=== PATIENT | female | born 1960 | race Caucasian/White ===

== ENCOUNTER 2021-12-12 00:08 | Day surgery (SDC) | payer OTHER, SELFPAY ==
[2021-11-24 12:45] VITALS: BMI 36.1
--- NOTE | 2021-12-11 15:52 | PM.HPGS ---
History of Present Illness History of Present Illness Consent: Risks, benefits, and alternatives have been discussed and questions answered. Patient agrees to proceed with procedure. Chief complaint: neoplasm screening Narrative: Saranya Finch is a 61 year old female Referred for colon cancer screening. Review of Systems Review of Systems: All systems reviewed & are unremarkable except as noted in HPI and below PMFSH Past Medical History Medical History Hypertension Kidney stones Obesity Surgical History Surgical History History of dilation and curettage (07/27/10) hscope d&c--endocervical polpectomy--benign History of root canal procedure (05/18/15) Family History Family History Other Advanced dementia Social History Social History Smoking status: Former smoker Alcohol intake: current Alcohol use details: socially Substance use: never Substance use type: does not use Living arrangements: with family Additional occupation/education comments: banker Gender identity (if verbalized by the patient): Female Spiritual care concerns: No Meds Home Medications and Allergies Home Medications Medication Instructions Recorded Confirmed Type lisinopril 10 mg tablet 10 mg PO DAILY 08/22/21 12/12/21 History tolterodine 4 mg capsule,extended 4 mg PO DAILY #90 caps 08/22/21 12/12/21 Rx release 24 hr (Detrol LA) multivit with minerals-iron 18 1 tablet PO DAILY 11/24/21 12/12/21 History mg-folic ac 400 mcg-vit K 25 mcg tablet (Adults Multivitamin) Allergies Allergy/AdvReac Type Severity Reaction Status Date / Time No Known Allergies Allergy Mild Verified 12/12/21 10:29 Exam Const: General: alert Orientation/consciousness: patient oriented x3 Resp: Auscultation: clear to auscultation bilaterally Cardio: Rhythm: regular rhythm GI: GI Palp: Yes Soft to palpation and No Tenderness to palpation present (GI) Neuro: General: patient oriented x3 Assessment and Plan Assessment and plan (1) Colon cancer screening: Code(s): Z12.11 - Encounter for screening for malignant neoplasm of colon Status: Acute Assessment and Plan: Colonoscopy with possible biopsy or polypectomy or cautery or injection of substances.
[2021-12-12 10:30] VITALS: BP 153/89; PULSE 84; RESP 16; TEMP 36.2; O2SAT 99
[2021-12-12] MEDS: LACTATED RINGERS 1,000 ML 150 ML IV CONT (10:41)
--- NOTE | 2021-12-12 10:43 | P.PNAN_ITS ---
Anes - Initial Pre Proc Eval Procedure: Operation Date: 12/12/21 11:30 Proposed Procedures p Screening Colonoscopy - Jamarcus Carter MD Date/Time: 12/12/21 10:43 Surgeon: Jamarcus Carter MD Pre Op Diagnosis: neoplasm screening Patient Data Age: 61 Gender: F Height: 1.52 m Weight: 81 kg Last Vital Signs Temp 36.2 C L 12/12/21 10:30 Pulse 84 12/12/21 10:30 Resp 16 12/12/21 10:30 BP 153/89 H 12/12/21 10:30 Pulse Ox 99 12/12/21 10:30 O2 Del Method Room Air 12/12/21 10:30 Allergies Allergy/AdvReac Type Severity Reaction Status Date / Time No Known Allergies Allergy Mild Verified 12/12/21 10:29 Home Medications Medication Instructions Recorded Confirmed Type lisinopril 10 mg tablet 10 mg PO DAILY 08/22/21 12/12/21 History tolterodine 4 mg capsule,extended 4 mg PO DAILY #90 caps 08/22/21 12/12/21 Rx release 24 hr (Detrol LA) multivit with minerals-iron 18 1 tablet PO DAILY 11/24/21 12/12/21 History mg-folic ac 400 mcg-vit K 25 mcg tablet (Adults Multivitamin) Patient hx anesthesia problems: none Family hx anesthesia problems: none Results Review: All pre-operative results and documents have been reviewed as part of the pre- operative evaluation. [facility] Past Medical History Medical History (Updated 12/12/21 @ 10:44 by Mike Barrera MD) Hypertension Kidney stones Obesity Surgical History Surgical History History of dilation and curettage (07/27/10) hscope d&c--endocervical polpectomy--benign History of root canal procedure (05/18/15) Family History Family History Other Advanced dementia Social History Social History Smoking status: Former smoker Alcohol intake: current Alcohol use details: socially Substance use: never Substance use type: does not use Living arrangements: with family Additional occupation/education comments: banker Gender identity (if verbalized by the patient): Female Spiritual care concerns: No Anes - Eval Final PreProcedure Day of Procedure 12/12/21 10:43 Patient weight: obese Heart: regular rate and rhythm Lungs: clear to auscultation Airway: Mallampati scale class II Neurological: alert and oriented ASA classification: II Emergent: no Anesthesia type and monitoring: general GIVS and standard monitoring Results Review: All pre-operative results and documents have been reviewed as part of the pre- operative evaluation. Informed Consent: The patient's anesthetic plan and its attendant risks and benefits were discussed with the patient/family/POA. Questions were solicited and answers provided to the satisfaction of the patient/family/POA.
[2021-12-12 11:36] VITALS: BP 119/75; PULSE 80; RESP 18; O2SAT 97
[2021-12-12 11:46] VITALS: BP 110/72; PULSE 77; RESP 20; O2SAT 99
[2021-12-12 11:56] VITALS: BP 122/85; PULSE 76; RESP 18; O2SAT 100
== END 2021-12-12 12:02 | disposition home or self-care (01) ==
PROVIDERS: PCP Nurse Practitioner Family; Visit Provider Internal Medicine Gastroenterology
PROC: 0DJD8ZZ Inspection of Lower Intestinal Tract, Via Natural or Artificial Opening Endoscopic (ICD-10-PCS; CPT 45378; principal; 2021-12-12 11:30)
DX: Z12.11 Encounter for screening for malignant neoplasm of colon (principal); I10 Essential (primary) hypertension; Z87.891 Personal history of nicotine dependence; E66.9 Obesity, unspecified; Z68.34 Body mass index [BMI] 34.0-34.9, adult
CPT/HCPCS: 45378; J2704; J7120

== ENCOUNTER 2024-10-31 14:38 | Outpatient (CLI) | payer OTHER, SELFPAY ==
--- NOTE | ~2024-10-31 | MM_ITS ---
EXAMINATION: MM screening miriam BI w kiran HISTORY: Screening TECHNIQUE: Craniocaudal and mediolateral oblique 3-D tomosynthesis images were obtained and synthetic 2-D images were generated. CAD analysis was submitted and interpreted. COMPARISON: No prior mammogram is available for comparison at this institution. BREAST PARENCHYMAL COMPOSITION: Not dense: There are scattered areas of fibroglandular density. FINDINGS: There are scattered nodules which are partially obscured by fibroglandular tissue throughou t the left breast. There is no mammographic evidence for malignancy in the right breast. IMPRESSION: 1. Scattered left breast nodules. 2. Recommend comparison outside mammograms to assess stability. BI-RADS Category 0: Incomplete: Needs additional imaging evaluation. Reviewed, dictated and finalized at location A.
--- OUTSIDE RECORDS SUMMARY | 2024-10-31 14:41 | XMS_ITS | Clinical Summary ---
Author Organization [address] Address [address] [place] [address] [place] [id number] Care Team Providers Care Doggy Daycare Activities Director Name Role Phone No, Physician Primary Care Provider [phone] Allergies No known active allergies Medications calcium carbonate-vitami n D3 (CALTRATE 600 + D) 1500 mg (600 mg elemental) -400 units per tabletIndication s:Prevention of Vitamin D Deficiency Take 1 tablet by mouth 2 (two) times a day 4 Active lisinopriL (PRINIVIL,ZESTRI L) 10 mg tabletIndication s:hypertension Take 1 tablet (10 mg total) by mouth emergency planner before breakfast 4 Active phentermine 30 mg capsuleIndicatio ns:Wt Loss Mgmt, Pt with BMI 27-29 & Wt-Related Comorbidity Take 1 capsule (30 mg total) by mouth every morning 4 Active multivitamin tabletIndication s:Vitamin Deficiency Prevention Take 1 tablet by mouth emergency planner before breakfast Active polycarbophil (FIBERCON) 625 mg tabletIndication s:constipation Take 1 tablet (625 mg total) by mouth emergency planner before breakfast Active dorzolamide-cynthia loL (COSOPT) 22.3-6.8 mg/mL ophthalmic solution Administer 1 drop into both eyes 2 (two) times a day 10 mL 5 Active tolterodine LA (DETROL LA) 4 mg 24 hr capsule Take 1 capsule (4 mg total) by mouth daily Active latanoprost (XALATAN) 0.005 % ophthalmic solution Administer 1 drop into the left eye nightly 2.5 mL 11 5 Active Active Problems Problem Noted Date Diagnosed Date Residual stage angle-closure glaucoma, left 09/17 Assessment & Plan (10/08/2024 8:01 PM CDT): OCT and Barreto visual field (HVF) stable Intraocular pressure (IOP) elevated today on Cosopt ? Steroid response with hx of GSL and open angle Status post (s/p) STK 06/10 Discussed with pt- ? Excision Add latanoprost left eye (OS) q day F/U 1 month- repeat gonio Epiretinal membrane (ERM) of both eyes Assessment & Plan (04/23/2024 10:03 AM CUSTOMER COMPLAINT SERVICE SUPERVISOR): Mild , not visually significant both eyes (OU). Cystoid macular edema of left eye 04/23/2024 Assessment & Plan (10/08/2024 8:00 PM CDT): Resolved Noted mild VMT with ERM Assessment & Plan (04/23/2024 10:03 AM CUSTOMER COMPLAINT SERVICE SUPERVISOR): Mildly improved on Durezol and Acular but persistent . Discussed R/B/A of STK and patient wishes to proceed. Post-operative state 12/14/2023 Assessment & Plan (03/26/2024 3:16 PM CUSTOMER COMPLAINT SERVICE SUPERVISOR): POM3 CEIOL and ECP - Left OCT mac with significant CME, stable from prior IOP trending higher. Add Cosopt left eye (OS) bid Switch PF to Durezol QID Continue ketorolac QID Refer to Retina Right eye LPI patent (s/p touch up in 02/2024) CEIOL OD once CME OS improved Assessment & Plan (02/27/2024 4:44 PM CUSTOMER COMPLAINT SERVICE SUPERVISOR): POM2 Extraction Cataract - Phacoemulsification And Lens Implant - Left, and Endoscopic Laser Cyclophotocoagulation - Left Inflammation resolved, vision improving with cystoid macular edema (CME) Cont PF qid/Ketorolac qid Intraocular pressure (IOP) acceptable off meds Right eye (OD)- laser peripheral iridotomy (LPI) now patent Defers cataract extraction (CE) right eye (OD) until next year F/U 4 wks with repeat OCT Assessment & Plan (02/06/2024 9:21 PM CUSTOMER COMPLAINT SERVICE SUPERVISOR): POW7 Extraction Cataract - Phacoemulsification And Lens Implant - Left, and Endoscopic Laser Cyclophotocoagulation - Left Inflammation resolved, vision worsened with cystoid macular edema (CME) Begin PF qid/Ketorolac qid Intraocular pressure (IOP) excellent off meds Right eye (OD)- laser peripheral iridotomy (LPI) now patent Defers cataract extraction (CE) left eye (OS) until next year F/U 3 wks with repeat OCT Assessment & Plan (01/09/2024 4:47 PM CDT): POM1 Extraction Cataract - Phacoemulsification And Lens Implant - Left, and Endoscopic Laser Cyclophotocoagulation - Left Inflammation resolved, vision improved Tapering off PF Intraocular pressure (IOP) excellent off meds Right eye (OD)- laser peripheral iridotomy (LPI) not patent Recommend cataract extraction (CE)/intraocular lens (IOL) Defers until next year, recommend touchup laser peripheral iridotomy (LPI) Assessment & Plan (12/19/2023 1:17 PM CDT): POW1 Extraction Cataract - Phacoemulsification And Lens Implant - Left, and Endoscopic Laser Cyclophotocoagulation - Left Still with injection and 1+ cell. Will extend taper slightly Postoperative instructions were given. The patient is to use: Taper PF 4-3-2-1 D/C Moxi Continue cosopt BID OD Signs, symptoms of retinal detachment, tear, hole, and endophthalmitis and hypotony were reviewed and the patient is to call immediately for concerns. They can resume normal activity. We discussed that things should improve until they stabilize. Should there be any worsening of pain, vision, or redness the patient is to call. RTC for POM1 refraction and possible pre-op OD Assessment & Plan (12/14/2023 11:16 AM CDT): POD1 Extraction Cataract - Phacoemulsification And Lens Implant - Left, and Endoscopic Laser Cyclophotocoagulation - Left Intraocular pressure (IOP) 15 with 4+ mixed (mostly pigmented) cell Postoperative instructions were given. The patient is to use: ofloxacin QID X 1 week Prednisolone Acetate 1% QID Hold glaucoma drops left eye (OS) Continue Cosopt every day (QD) OD Patient is to wear the shield at bedtime X 1 week. Signs, symptoms of retinal detachment, tear, hole, and endophthalmitis were reviewed and the patient is to call immediately for concerns. We discussed that things should improve until they stabilize. Should there be any worsening of pain, vision, or redness the patient is to call. Followup 1 week or sooner for concerns. Age-related nuclear cataract of right eye 2023 Assessment & Plan (03/26/2024 2:17 PM CUSTOMER COMPLAINT SERVICE SUPERVISOR): Appositional closure Recommend CEIOL Assessment & Plan (01/09/2024 4:48 PM CDT): Recommend cataract extraction (CE)/intraocular lens (IOL) with appositional closure Defers until next year Acute angle-closure glaucoma, left 11/21/2023 Assessment & Plan (11/28/2023 5:47 PM CDT): Hx of acute angle closure glaucoma (AACG) status post (s/p) laser peripheral iridotomy (LPI) with touch up- anterior chamber (AC) deeper, angle remains occludable/PAS Intraocular pressure (IOP) now 48 on 3 agents Exam with glaukomflecken, shallow anterior chamber (AC), and pallor of nerve - Barreto visual field (HVF) with mod inf arcuate; Cont Latanoprost, Cosopt, DC PF Add DMX 500 mg bid- discussed side effects Leaving 11/29-20 F/U after travel and plan for cataract extraction (CE)/intraocular lens (IOL)/GSL, possible diode merchandising internship left eye (OS) 12/17 Assessment & Plan (11/21/2023 9:10 PM CDT): Referred by Dr. Maria with hx of acute angle closure attack 10/29/23 Status post (s/p) laser peripheral iridotomy (LPI) left eye (OS) On Phentermine (sympathomimetic) currently and was on tolteradine (muscarinic) at time of the attack- intraocular pressure (IOP) 40s, redness and pain x 2 days Initially thought she had an eye infection Intraocular pressure (IOP) now 18 on 4 agents Laser peripheral iridotomy (LPI) partially patent. Angle remains with appositional closure, no obvious PAS. Exam with glaukomflecken, shallow anterior chamber (AC), and pallor of nerve - Barreto visual field (HVF) with mod inf arcuate; Recommend touch up laser peripheral iridotomy (LPI)- performed in office without complication Simplify meds: Latanoprost, Cosopt, PF for postop F/U 1 wk- plan laser peripheral iridotomy (LPI) right eye (OD), IOLM Recommend cataract extraction (CE)/intraocular lens (IOL) for definitive therapy Primary angle closure suspect, right 11/21/2023 Assessment & Plan (10/08/2024 8:00 PM CDT): Intraocular pressure (IOP) acceptable on Cosopt Nl RNFL, full Barreto visual field (HVF) Defer cataract extraction (CE) until left eye (OS) stable Assessment & Plan (02/06/2024 9:20 PM CUSTOMER COMPLAINT SERVICE SUPERVISOR): Touch up YAG PI today Assessment & Plan (11/28/2023 5:48 PM CDT): Occludable angles, normal intraocular pressure (IOP) , full visual field (VF) and Normal RNFL No symptoms Incomplete laser peripheral iridotomy (LPI) today Defer additional laser until postop left eye (OS) Assessment & Plan (11/21/2023 9:09 PM CDT): Occludable angles, normal intraocular pressure (IOP) , full visual field (VF) and Normal RNFL No symptoms Plan laser peripheral iridotomy (LPI) right eye (OD) next week Encounters Date Type Department Care Team Description 10/08/2024 1:45 PM CDT Office Visit [facility] Ophthalmology [facility] [place] [phone] Miranda Laureano MD Residual stage angle-closure glaucoma, left (Primary Dx); Primary angle closure suspect, right; Cystoid macular edema of left eye 10/08/2024 1:20 PM CDT Imaging Exam [facility] Ophthalmology [address] [place] [phone] Ocular hypertension of left eye 10/08/2024 1:10 PM CDT Imaging Exam [facility] Ophthalmology [address] [place] [phone] Ocular hypertension of left eye 09/10/2024 2:15 PM CDT Office Visit [facility] Ophthalmology [address] [place] [phone] Kendal Aviles MD PhD Cystoid macular edema of left eye (Primary Dx) from Last 3 Months Surgical History Surgery Date Site/Laterality Comments COLONOSCOPY Medical History Medical History Date Comments HTN (hypertension) Glaucoma CME (cystoid macular edema), left Social History Tobacco Use Types Packs/Day Years Used Date Smoking Tobacco: Never Smokeless Tobacco: Never Tobacco Cessation:Counseling Given: Not Answered AUDIT-C Answer Date Recorded Q1: How often do you have a drink containing alc ohol? Monthly or less 12/06/2023 Q2: How many drinks containi ng alcohol do you have on a typical day when you are drinking? 1 or 2 12/06/2023 Q3: How often do you have si x or more drinks on one occasion? Never 12/06/2023 Personal Safety Answer Date Recorded Have you ever been in or are you currently in a harmful physical or emotional relationship or is someone making you feel afraid or unsafe? Denies 12/13/2023 Comments Unknown Sex and Gender Information Value Date Recorded Sex Assigned at Not on file Legal Sex Female 5:54 PM CUSTOMER COMPLAINT SERVICE SUPERVISOR Gender Identity Not on file Sexual Orientation Not on file Obstetrics History Last Filed Vital Signs Vital Sign Reading Time Taken Comments Blood Pressure 115/78 12/13/2023 8:40 AM CDT Pulse 68 12/13/2023 8:40 AM CDT Temperature 36.4 C (97.5 F) 12/13/2023 8:32 AM CDT Respiratory Rate 14 12/13/2023 8:40 AM CDT Oxygen Saturation 99% 12/13/2023 8:40 AM CDT Inhaled Oxygen Concentration - - Weight 78 kg (172 lb) 12/06/2023 10:00 AM CDT Height 152.4 cm (5') 12/06/2023 10:00 AM CDT Body Mass Index 33.59 12/06/2023 10:00 AM CDT Plan of Treatment Health Maintenance Due Date Last Done Comments Breast Cancer Screening-Mammogram 1960 Cervical Cancer Screening 1960 Colon Cancer Screening-Colonoscopy 1960 Depression Screening 1960 Hepatitis C Screening 1960 Hepatitis B Screening 02/25/1978 Regular Well Visit/Exam 18-64 02/25/1978 Zoster Vaccine (1 of 2) 02/25/2010 Covid-19 Vaccine (3 - 2023-2 5 season) 2023 10/11/2020, 09/07/2020 Influenza Vaccine (#1) 2024 DTaP/Tdap/Td Vaccine (2 - Td or Tdap) 09/12/2027 09/11/2017 Pneumococcal vaccine <65 Aged Out No longer eligible based on patient's age to complete this topic Medical Devices Implanted Type Area Aircraft Seat Upholsterer Device Identifier Shelf Expiration Date Model / Serial / Lot Obeo Lens Iol Tecnis Smplcty 1-Pc Clr [employer] 21.5 Diopter [id number] - [id number] - [id number] Implanted:Qty: 1 on 12/13/2023 by Miranda Laureano MD at [facility] Lens Left: Eye [employer] [id number] 08/21/2025 [id number] / [id number] / Procedures Procedure Name Priority Date/Time Associated Diagnosis Comments BARRETO VISUAL FIELD - OU - BOTH EYES Routine 10/08/2024 1:00 PM CDT Ocular hypertension of left eye OCT, OPTIC NERVE - OU - BOTH EYES Routine 10/08/2024 1:00 PM CDT Ocular hypertension of left eye OCT, RETINA - OU - BOTH EYES Routine 09/10/2024 1:44 PM CDT Cystoid macular edema of left eye from Last 3 Months Results * Barreto Visual Field - OU - Both Eyes (10/08/2024 1:00 PM CDT) Mean Deviation OS -3.63 CONTINUUM Mean Deviation OD 0.57 CONTINUUM Anatomical Region Laterality Modality Head Other Narrative 10/08/2024 7:57 PM CDT Right Eye Fixation was good. Cooperation was good. Reliability was good. Progression has been stable. Foveal threshold was normal. Findings include normal observations. Mean Deviation was 0.57. Left Eye Fixation was good. Cooperation was good. Reliability was good. Progression has been stable. Foveal threshold was normal. Findings include inferior arcuate defect. Mean Deviation was -3.63. Miranda Laureano MD OPH VISUAL FIELD Final Result * OCT, Optic Nerve - OU - Both Eyes (10/08/2024 1:00 PM CDT) RNFL OS 94 micrometers CONTINUUM RNFL OD 114 micrometers CONTINUUM Anatomical Region Laterality Modality Head Other Narrative 10/08/2024 7:55 PM CDT Right Eye Reliability was good. Temporal progression was stable. Temporal thickness was normal. Superior progression was stable. Superior thickness was normal. Nasal progression was stable. Nasal thickness was normal. Inferior progression was stable. Inferior thickness was normal. Average RNFL thickness 114 micrometers. Left Eye Reliability was good. Temporal progression was stable. Temporal thickness was normal. Superior progression was stable. Superior thickness was normal. Nasal progression was stable. Nasal thickness was normal. Inferior progression was stable. Inferior thickness was normal. Average RNFL thickness 94 micrometers. Notes Noted asymmetry Miranda Laureano MD OPHTH TOMOGRAPHY Final R esult * OCT, Retina - OU - Both Eyes (09/10/2024 1:44 PM CDT) Anatomical Region Laterality Modality Head Optical Coherenc e Tomography Narrative 09/10/2024 1:44 PM CDT Right eye (OD): epiretinal membrane (ERM) with mild focal VMT, no cystoid macular edema (CME) Left eye (OS): resolved cystoid macular edema (CME) with resolved rare cysts Kendal Aviles MD PhD OPHTH TOMOGRAPHY Fin al Result from Last 3 Months Insurance [employer] OPEN ACCESS [facility] [employer] OPEN ACCESS Care Teams Doggy Daycare Activities Director Relationship Specialty Start Date End Date No, Physician PCP - General 11/15/23
== END 2024-10-31 14:39 | disposition home or self-care (01) ==
LOC: CHSIMG 14:39
PROVIDERS: PCP Nurse Practitioner Family; Visit Provider Obstetrics & Gynecology
DX: Z12.31 Encounter for screening mammogram for malignant neoplasm of breast (principal); R92.8 Other abnormal and inconclusive findings on diagnostic imaging of breast
CPT/HCPCS: 77063; 77067

== ENCOUNTER 2024-11-24 09:17 | Outpatient (CLI) | payer OTHER, SELFPAY ==
--- NOTE | ~2024-11-24 | MMUS_ITS ---
EXAMINATION: MM diagnostic miriam LT w kiran, US breast LT limited INDICATION: 64-year old female; BI-RADS 0, evaluate left breast masses. COMPARISON: 10/31/2024 TECHNIQUE: Digital breast tomosynthesis True lateral and spot compression CC and MLO views of the LEFT breast were obtained with computer-aided detection to assist in interpretation of the study. FINDINGS: There are scattered areas of fibroglandular density. A circumscribed mass persists on the spot compression views in the retroareolar, middle third. Additional circumscribed mass persists in the inferior central 6:00 location at anterior third. A circumscribed mass persists on spot compression views in the lateral central at posterior third. Ultrasound was performed for further evaluation. LEFT BREAST ULTRASOUND FINDINGS: Targeted evaluation of the areas of concern was completed. There is a 0.8 x 0.6 x 0.4 cm anechoic mass, subareolar location in the LEFT breast that correlates to the area of Mammographic finding. This finding represents a cyst. At 6:00, 1 cm from the nipple there is a 0.3 cm anechoic mass which correlates to a mammographic finding. This finding most likely represent a cyst. There is no sonographic correlate to the mammographic circumscribed mass seen at 3:00 location. This finding is most likely probably benign. IMPRESSION: 1. Probably benign circumscribed mass outer central left breast. 2. Benign LEFT breast cysts in the subareolar and at 6:00 location that correlates to mammographic finding. No further investigation necessary. RECOMMENDATION: Short-term follow-up diagnostic left mammogram in 6 months. BI-RADS 3, PROBABLY BENIGN Reviewed, dictated and finalized at location B. IMPRESSION: 1. Probably benign circumscribed mass outer central left breast. 2. Benign LEFT breast cysts in the subareolar and at 6:00 location that correl ates to mammographic finding. No further investigation necessary. RECOMMENDATION: Short-term follow-up diagnostic left mammogram in 6 months. BI-RADS 3, PROBABLY BENIGN
--- OUTSIDE RECORDS SUMMARY | 2024-11-24 09:35 | XMS_ITS | Clinical Summary ---
Author Organization [address] Address [address] [place] [address] SOLITARIO Mckenna [phone] Care Team Providers Care Parking Lot Signaler Name Role Phone No, Physician Primary Care Provider [phone] Allergies No known active allergies Medications calcium carbonate-vitami n D3 (CALTRATE 600 + D) 1500 mg (600 mg elemental) -400 units per tabletIndication s:Prevention of Vitamin D Deficiency Take 1 tablet by mouth 2 (two) times a day 4 Active lisinopriL (PRINIVIL,ZESTRI L) 10 mg tabletIndication s:hypertension Take 1 tablet (10 mg total) by mouth diving coach before breakfast 4 Active phentermine 30 mg capsuleIndicatio ns:Wt Loss Mgmt, Pt with BMI 27-29 & Wt-Related Comorbidity Take 1 capsule (30 mg total) by mouth every morning 4 Active multivitamin tabletIndication s:Vitamin Deficiency Prevention Take 1 tablet by mouth diving coach before breakfast Active polycarbophil (FIBERCON) 625 mg tabletIndication s:constipation Take 1 tablet (625 mg total) by mouth diving coach before breakfast Active dorzolamide-cynthia loL (COSOPT) 22.3-6.8 mg/mL ophthalmic solution Administer 1 drop into both eyes 2 (two) times a day 10 mL 5 Active tolterodine LA (DETROL LA) 4 mg 24 hr capsule Take 1 capsule (4 mg total) by mouth daily Active latanoprost (XALATAN) 0.005 % ophthalmic solution Administer 1 drop into the left eye nightly 2.5 mL 11 Active atorvastatin (LIPITOR) 10 mg tablet Take 1 tablet every day by oral route at bedtime for 90 days. Active Active Problems Problem Noted Date Diagnosed Date Residual stage angle-closure glaucoma, left 09/17 Assessment & Plan (11/12/2024 9:47 PM CDT): Intraocular pressure (IOP) elevated today on Cosopt and latanoprost Steroid response with hx of GSL and open angle Status post (s/p) STK 06/10 Discussed with pt- ? Excision- very small F/U 6 wks- repeat gonio ? SLT Assessment & Plan (10/08/2024 8:01 PM CDT): [...] eyes Assessment & Plan (04/23/2024 10:03 AM REPRODUCTION ARTIST): Mild , not visually significant both eyes (OU). Cystoid macular edema of left eye 04/23/2024 Assessment & Plan (11/12/2024 9:48 PM CDT): Resolved Noted mild VMT with epiretinal membrane (ERM) F/U with Dr. Aviles 5 wks Assessment & Plan (10/08/2024 8:00 PM CDT): Resolved Noted mild VMT with ERM Assessment & Plan (04/23/2024 10:03 AM REPRODUCTION ARTIST): Mildly improved on Durezol and Acular but persistent . Discussed R/B/A of STK and patient wishes to proceed. Post-operative state 12/14/2023 Assessment & Plan (03/26/2024 3:16 PM REPRODUCTION ARTIST): POM3 CEIOL and ECP - Left OCT mac with significant CME, stable from prior IOP trending higher. Add Cosopt left eye (OS) bid Switch PF to Durezol QID Continue ketorolac QID Refer to Retina Right eye LPI patent (s/p touch up in 02/2024) CEIOL OD once CME OS improved Assessment & Plan (02/27/2024 4:44 PM REPRODUCTION ARTIST): POM2 Extraction Cataract - Phacoemulsification And Lens [...] OCT Assessment & Plan (02/06/2024 9:21 PM REPRODUCTION ARTIST): POW7 Extraction Cataract - Phacoemulsification And Lens [...] 2023 Assessment & Plan (03/26/2024 2:17 PM REPRODUCTION ARTIST): Appositional closure Recommend CEIOL Assessment & Plan [...] cataract extraction (CE)/intraocular lens (IOL)/GSL, possible diode die filer left eye (OS) 12/17 Assessment & Plan [...] stable Assessment & Plan (02/06/2024 9:20 PM REPRODUCTION ARTIST): Touch up YAG PI today Assessment & [...] Encounters Date Type Department Care Team Description 11/12/2024 3:30 PM CDT Office Visit [facility] [address] [place] [phone] Miranda Laureano MD Residual stage angle-closure glaucoma, left (Primary Dx); Cystoid macular edema of left eye 10/08/2024 1:45 PM CDT Office Visit [facility] [address] [place] [phone] Miranda Laureano MD Residual stage angle-closure glaucoma, left (Primary Dx); Primary angle closure suspect, right; Cystoid macular edema of left eye 10/08/2024 1:20 PM CDT Imaging Exam [facility] [address] [place] [phone] Ocular hypertension of left eye 10/08/2024 1:10 PM CDT Imaging Exam [facility] [address] [place] [phone] Ocular hypertension of left eye 09/10/2024 2:15 PM CDT Office Visit [facility] [address] [place] [phone] Kendal Aviles MD PhD Cystoid macular edema [...] on file Legal Sex Female 5:54 PM REPRODUCTION ARTIST Gender Identity Not on file Sexual Orientation [...] of 2) 02/25/2010 Covid-19 Vaccine (3 - 2024-2 6 season) 2024 10/11/2020, 09/07/2020 Influenza Vaccine (#1) 2024 DTaP/Tdap/Td Vaccine (2 - Td or Tdap) 09/12/2027 09/11/2017 Pneumococcal vaccine <65 Aged Out No longer eligible based on patient's age to complete this topic Medical Devices Implanted Type Area Animal Husbandry Professor Device Identifier Shelf Expiration Date Model / Serial / Lot AlgEvolve Lens Iol [employer] Nunezplcty 1-Pc Clr Braxton 21.5 Diopter [id number] - [id number] - [id number] Implanted:Qty: 1 on 12/13/2023 by Miranda Laureano MD at [facility] Advanced Medicine Lens Left: Eye [employer] [id number] 08/21/2025 [id number] / [id number] / Procedures Procedure Name Priority Date/Time Associated [...] inferior arcuate defect. Mean Deviation was -3.63. us Miranda Laureano MD OPH VISUAL FIELD Final [...] RNFL thickness 94 micrometers. Notes Noted asymmetry us Miranda Laureano MD OPHTH TOMOGRAPHY Final R [...] al Result from Last 3 Months Insurance [employer] Member Subscriber Plan / Payer (Ef fective 2022-Present) Name:Saranya Finch Relation to Subscriber:Self Name:Saranya Finch Payer ID:[id number] Type:MANAGED CARE OTHER Address: [employer] CLAIMS [address] [place] [id number] [employer] OPEN ACCESS Care Teams Parking Lot Signaler Relationship Specialty Start Date End Date No, Physician PCP - General 11/15/23
== END 2024-11-24 09:18 | disposition home or self-care (01) ==
LOC: CHSIMG 09:20
PROVIDERS: PCP Family Medicine; Visit Provider Obstetrics & Gynecology
DX: N63.42 Unspecified lump in left breast, subareolar (principal); N63.23 Unspecified lump in the left breast, lower outer quadrant
CPT/HCPCS: 76642; 77061; 77065; G0279